=== PATIENT | male | born 1980 | race Caucasian/White ===

== ENCOUNTER 2017-12-04 09:27 | Emergency (ER) | payer BC, SELFPAY ==
[2017-12-04 09:28] VITALS: BP 163/97; PULSE 69; RESP 14; TEMP 36.5; BMI 40.2
--- NOTE | 2017-12-04 09:42 | ED.VISSUMM ---
- ER Visit Summary Date of Service: 12/04/17 Chief Complaint: Right hand laceration History of Present Illness: The patient is a 37 M no senior past medical history. Unsure of his last tetanus shot. That will be updated. Today he was working on his shower at home. And lacerated the palm of his right hand while working with sharp materials. He denies any other injuries. He is right-hand dominant. This occurred within the last 1-2 hours. Physical Examination: Vital signs stable afebrile. HEENT exam unremarkable. Lungs clear to auscultation. Heart regular rhythm no murmur. Abdomen soft. Nontender. Moving all 4 extremities. Neurovascularly intact. The palmar his right hand just proximal to the metacarpophalangeal joints there is a linear laceration that is about 3 inches in length. It involves the skin and subcu tissue. It does not involve the muscles, tendon, bones or joints. There is oozing of blood no pulsatile bleeding. Distally the right hand fingers are neurovascularly intact. They have full range of motion with flexion-extension. Normal cap refill. Normal touch sensation. There are no foreign bodies noted. It is a relatively clean wound. Test Results: None Emergency Department Course and Treatment: Tetanus updated. Procedure note: Right hand laceration repair. Lidocaine for local anesthetic. Patient washed his hand thoroughly. Informed by nurse cleaned with Shur-Clens and irrigated and explored by me. Closed using 5-0 Ethilon suture. Simple interrupted sutures placed. #7 5-0 Ethilon simple interrupted sutures. Wound closure proper hemostasis was obtained patient tolerated procedure well. Treatment Plan: [] Disposition: Discharge Impression: Acute right hand last with ER repair 6-7 cm Tetanus updated This note was generated with [employer] dictation software. It may contain incorrect words, spelling, and punctuation that were not noted in review of the chart prior to signing ED Disposition - Plan for ED Patient: Disposition: Home or Assisted Living Chief Complaint: Laceration Instructions: ED Laceration Hand Referrals: Carl Vera MD [STAFF PHYSICIAN] - 10 Day for suture removal Additional Instructions: Keep hand clean and dry. No soaking in dirty water. Clean daily with soap and water or peroxide and water. Return if any signs of infection such as redness, warmth, swelling, increasing pain or pus like discharge.
--- NOTE | 2017-12-04 09:44 | ED.DEP ---
ED Disposition - Plan for ED Patient: Disposition: Home or Assisted Living Chief Complaint: Laceration Instructions: ED Laceration Hand Referrals: Carl Vera MD [STAFF PHYSICIAN] - 10 Day for suture removal Additional Instructions: Keep hand clean and dry. No soaking in dirty water. Clean daily with soap and water or peroxide and water. Return if any signs of infection such as redness, warmth, swelling, increasing pain or pus like discharge.
[2017-12-04] MEDS: Diphth,Pertuss(Acell),Tet Vac 0.5 ML Vial IM (10:48)
== END 2017-12-04 11:11 | disposition home or self-care (01) ==
PROVIDERS: Emergency Provider Emergency Medicine
DX: S61.411A Laceration without foreign body of right hand, initial encounter (principal); W26.9XXA Contact with unspecified sharp object(s), initial encounter; Y93.9 Activity, unspecified; Y92.9 Unspecified place or not applicable; Z23 Encounter for immunization
CPT/HCPCS: 12002; 90715; 99283

== ENCOUNTER → 2020-07-16 20:00 | Outpatient (CLI) | payer BC, SELFPAY | PROVIDERS: PCP Family Medicine; Referring Provider Otolaryngology; Visit Provider Otolaryngology | DX: R06.83 Snoring (principal); R53.83 Other fatigue; R06.81 Apnea, not elsewhere classified | CPT/HCPCS: 95811 ==

== ENCOUNTER → 2020-08-03 11:05 | Outpatient (CLI) | payer BC, SELFPAY ==
[2020-07-30 13:50] VITALS: BMI 42.7
== END ==
PROVIDERS: PCP Family Medicine; Referring Provider Nurse Practitioner Acute Care; Visit Provider Nurse Practitioner Acute Care
DX: Z46.89 Encounter for fitting and adjustment of other specified devices (principal)